=== PATIENT | male | born 1965 | race Caucasian/White ===

== ENCOUNTER 2020-07-19 11:52 | Emergency (ER) | payer BC ==
[~2020-07-19] VITALS: Ht 177.8 cm; Wt 88.5 kg
[2020-07-19 12:19] VITALS: Ht 177.8 cm; Wt 88.5 kg
--- NOTE | 2020-07-19 12:21 | NUR ---
PATIENT CAME IN THROUGH ED FULL ARREST, DR. MORALES INTUBATED WITH 7.5 ETT, 23 AT TEETH. ETT SECURED WITH SHAINA AND VIRAL FILTER PUT ON TO DECREASE RISK OF EXPOSURE TO COVID. BREATH SOUNDS BILATERALLY AND CPR CONTINUED UNTIL DR. MORALES CALLED TOD.
== END 2020-07-19 14:45 | disposition expired ==
LOC: ED 11:52
DX: I46.9 Cardiac arrest, cause unspecified (principal); J18.9 Pneumonia, unspecified organism; J96.91 Respiratory failure, unspecified with hypoxia